=== PATIENT | female | born 2005 | race Caucasian/White ===

== ENCOUNTER 2025-02-07 15:58 | Emergency (ER) | payer SELFPAY ==
[2025-02-07 16:05] VITALS: BP 123/70
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
== END 2025-02-07 17:20 | disposition home or self-care (01) ==
LOC: EMR 15:58
PROVIDERS: EMERGENCY PHYSICIAN Emergency Medicine
DX: Z04.1 Encounter for examination and observation following transport accident (principal); V47.5XXA Car driver injured in collision with fixed or stationary object in traffic accident, initial encounter; Y92.410 Unspecified street and highway as the place of occurrence of the external cause; Z87.820 Personal history of traumatic brain injury
CPT/HCPCS: 99282